=== PATIENT | female | born 1975 | race Two or more races ===

== ENCOUNTER 2018-12-27 09:43 | Inpatient (IN) | payer MEDICAID ==
[2018-12-12 09:55] LABS: HEMATOCRIT 31.2 % (37.0-47.0); HEMOGLOBIN 10.1 G/DL (12.0-16.0); MEAN CORPUSCULAR VOLUME 104 FL (80-99); PLATELET COUNT 237 K/UL (150-450); RED BLOOD COUNT 3.01 M/UL (4.20-5.40); RED CELL DISTRIBUTION WIDTH 17.8 % (11.6-14.8); WHITE BLOOD COUNT 4.2 K/UL (4.8-10.8)
[2018-12-12 10:00] LABS: APPEARANCE,URINE CLEAR; BILIRUBIN, URINE NEGATIVE (NEGATIVE); COLOR,URINE PALE YELLOW; GLUCOSE, URINE (UA) NEGATIVE (NEGATIVE); KETONES,URINE NEGATIVE (NEGATIVE); LEUKOCYTE ESTERASE ,URINE NEGATIVE (NEGATIVE); NITRITE,URINE NEGATIVE (NEGATIVE); PH,URINE 7 (4.5-8.0); PROTEIN,URINE NEGATIVE (NEGATIVE); UROBILINOGEN,URINE NORMAL MG/DL (0.0-1.0)
[2018-12-12 10:05] LABS: ANION GAP 10 mmol/L (5-15); BLOOD UREA NITROGEN 9 mg/dL (7-18); CALCIUM 9.3 MG/DL (8.5-10.1); CARBON DIOXIDE 28 MMOL/L (21-32); CHLORIDE 104 MMOL/L (98-107); CREATININE 0.6 MG/DL (0.55-1.30); POTASSIUM 3.5 MMOL/L (3.5-5.1); SODIUM 142 MMOL/L (136-145)
--- NOTE | 2018-12-13 16:02 | Cardiology Report ---
APPROVED REPORT EKG Measurement Heart [id number] Normal sinus rhythm Normal ECG
--- NOTE | 2018-12-23 17:15 | Pre-op HX & Phy Repo 2 SIG ---
DATE OF ADMISSION: 12/27/2018 SCHEDULED FOR SURGERY: December 27, 2018. 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 The patient had presented with a left breast mass in the lower inner quadrant adjacent to the areola measuring 3 x 2 cm. The mass is estrogen and progesterone and HER2 receptor negative. The patient received neoadjuvant chemotherapy with the left breast mass becoming no longer palpable and the previously palpable left axillary lymph nodes becoming much reduced. The patient is now scheduled to undergo left breast partial mastectomy with preoperative needle localization and left axillary lymph node dissection. PAST MEDICAL HISTORY: MEDICATIONS: None. ALLERGIES: None. OPERATIONS: None. REVIEW OF SYSTEMS: 3, para 3, having regular menstrual periods. The patient has a sister diagnosed with breast cancer at age 47. Per oncology, the patient had genetic testing which report was negative. PHYSICAL EXAMINATION: GENERAL: The patient is 5 foot, 136 pounds. VITAL SIGNS: Within normal limits. HEENT: Within normal limits. LUNGS: Clear. HEART: Regular rhythm. BREASTS: Moderate in size. There is some thickening at 8 to 9 o'clock in the left breast adjacent to the areola, but no palpable mass. Right breast unremarkable. No axillary or supraclavicular lymphadenopathy. ABDOMEN: Soft. PELVIC: Per primary care. RECTAL: Per primary care. EXTREMITIES: Without edema. NEUROLOGIC: Physiologic. IMPRESSION: Invasive ductal carcinoma, poorly differentiated, triple-negative, metastatic to axillary lymph nodes, status post neoadjuvant chemotherapy. PLAN: Left breast partial mastectomy with preoperative needle localization and left axillary lymph node dissection. I have had a full discussion with the patient regarding the nature of her condition, the nature of the surgery, indications, alternatives, options and risks including bleeding, infection, need for additional surgery or treatments including radiation therapy or additional chemotherapy based on final pathology, scarring, distortion of the breast and nipple, need for a drain, etc. All questions have been answered and the patient understands and agrees to proceed. Omid Figueroa M.D. DR: Marianela JOB#: [id number] CC: RERE
[~2018-12-27] VITALS: Ht 154.9 cm; Wt 54.5 kg
[2018-12-27] VITALS (15 sets, daily range): BP systolic 101–130; BP diastolic 60–83
[2018-12-27] MEDS ORDERED: NKM (10:12)
[2018-12-27 10:41] LABS: HEMATOCRIT 33.3 % (37.0-47.0); HEMOGLOBIN 10.9 G/DL (12.0-16.0); MEAN CORPUSCULAR VOLUME 100 FL (80-99); PLATELET COUNT 235 K/UL (150-450); RED BLOOD COUNT 3.35 M/UL (4.20-5.40); RED CELL DISTRIBUTION WIDTH 15.6 % (11.6-14.8)
--- NOTE | 2018-12-27 10:42 | Pre-Procedure Note/Attestation ---
Pre-Procedure Note/Attestation Complete Prior to Procedure Planned Procedure: left Procedure Narrative: left breast partial mastectomy with pre-op needle localization and left axillary lymph node dissection Indications for Procedure Pre-Operative Diagnosis: invasive ductal carcinoma left breast metastatic to axillary lymph nodes Attestation I attest that I discussed the nature of the procedure; its benefits; risks and complications; and alternatives (and the risks and benefits of such alternatives ), prior to the procedure, with the patient (or the patient's legal sales representative [employer]). I attest that, if there was a reasonable possibility of needing a blood transfusion, the patient (or the patient's legal sales representative [employer]) was given the [facility] standardized written summary, pursuant to the Tereso Lori Blood Safety Act ([place] Health and Safety Code # 1645, as amended). I attest that I re-evaluated the patient just prior to the surgery and that there has been no change in the patient's H&P, except as documented below:none Omid Figueroa MD December 27, 2018 10:42
[2018-12-27 11:14] LABS: HEMATOCRIT 31.6 % (37.0-47.0); HEMOGLOBIN 10.3 G/DL (12.0-16.0); MEAN CORPUSCULAR VOLUME 99 FL (80-99); PLATELET COUNT 242 K/UL (150-450); RED BLOOD COUNT 3.18 M/UL (4.20-5.40); RED CELL DISTRIBUTION WIDTH 16.3 % (11.6-14.8); WHITE BLOOD COUNT 23.5 K/UL (4.8-10.8)
[2018-12-27] MEDS ORDERED: Bacitracin 50000 Units Vial ONE (12:00)
[2018-12-27] MEDS ORDERED: Lidocaine 1% 10mg/ml/Epi 0.005mg/ml 30ml vial INJ ONE (12:00)
[2018-12-27] MEDS ORDERED: Bupivacaine 0.5% Inj 30 ml vial INJ ONE (12:00)
[2018-12-27] MEDS ORDERED: LR 1000ml ONE (12:28)
[2018-12-27] MEDS ORDERED: Sterile Water Irrig 1000ml IRRIG ONE (12:28)
[2018-12-27] MEDS ORDERED: NS Irrig 1000ml ONE (12:28)
[2018-12-27] MEDS ORDERED: fentaNYL 100 mcg/2 mL IV ONE (12:30)
[2018-12-27] MEDS ORDERED: Propofol 200mg/20ml IV ONE (12:30)
[2018-12-27] MEDS ORDERED: Lidocaine 1% MPF 10mg/ml 5ml ONE (12:30)
[2018-12-27] MEDS ORDERED: Midazolam 2mg/2ml Inj ONE (12:30)
[2018-12-27] MEDS ORDERED: LR 1000ml 1,000 ML IVLG SCH (12:55)
--- NOTE | 2018-12-27 12:55 | Anethesia Preoperative Eval ---
Anesthesia Pre-op PMH/ROS General Date of Evaluation: December 27, 2018 Anesthesiologist: Cale ASA Score: ASA 3 Mallampati Score Class I : Soft palate, uvula, fauces, pillars visible Class II: Soft palate, uvula, fauces visible Class III: Soft palate, base of uvula visible Class IV: Only hard plate visible Mallampati Classification: Class I Surgeon: Carolina Diagnosis: Left breast cancer Surgical Procedure: Left breast partial mastectomy with axillary lymph node biopsy Anesthesia History: none Family History: no anesthesia problems Allergies: Coded Allergies: No Known Allergies (Unverified , 12/27/18) Medications: see eMAR Patient NPO?: Yes NPO Date: December 26, 2018 NPO Time: 22:00 Past Medical History Cardiovascular: Denies: HTN, CAD, OR, valve dz, arrhythmia, other Pulmonary: Denies: asthma, COPD, MIRNA, other Gastrointestinal/Genitourinary: Denies: GERD, CRI, ESRD, other Neurologic/Psychiatric: Denies: dementia, CVA, depression/anxiety, TIA, other Endocrine: Denies: DM, hypothyroidism, steroids, other HEENT: Denies: cataract (L), cataract (R), glaucoma, [place] (L), [place] (R), other Hematology/Immune: Reports: anemia; Denies: DVT, bleeding disorder, other Musculoskeletal/Integumentary: Reports: other - left breast cancer; Denies: OA, RA, DJD, DDD, edema PSxH Narrative: left elbow sx Anesthesia Pre-op Phys. Exam Physician Exam Last Vital Signs Date Time Temp Pulse Resp B/P (MAP) Pulse Ox O2 Delivery O2 Flow Rate FiO2 12/27/18 10:30 Room Air 12/27/18 10:18 98.6 96 18 130/77 98 Constitutional: NAD Cardiovascular: RRR Respiratory: CTA Airway Exam Mallampati Score: Class I MO: full ROM: full Teeth: intact Anesthesia Pre-op A/P Labs Hematology Test 12/27/18 10:25 12/27/18 11:00 White Blood Count 25.0 K/UL (4.8-10.8) *H 23.5 K/UL (4.8-10.8) *H Red Blood Count 3.35 M/UL (4.20-5.40) L 3.18 M/UL (4.20-5.40) L Hemoglobin 10.9 G/DL (12.0-16.0) L 10.3 G/DL (12.0-16.0) L Hematocrit 33.3 % (37.0-47.0) L 31.6 % (37.0-47.0) L Mean Corpuscular Volume 100 FL (80-99) H 99 FL (80-99) Mean Corpuscular Hemoglobin 32.4 PG (27.0-31.0) H 32.3 PG (27.0-31.0) H Mean Corpuscular Hemoglobin Concent 32.6 G/DL (32.0-36.0) 32.5 G/DL (32.0-36.0) Red Cell Distribution Width 15.6 % (11.6-14.8) H 16.3 % (11.6-14.8) H Platelet Count 235 K/UL (150-450) 242 K/UL (150-450) Mean Platelet Volume 5.9 FL (6.5-10.1) L 5.3 FL (6.5-10.1) L Neutrophils (%) (Auto) % (45.0-75.0) % (45.0-75.0) Lymphocytes (%) (Auto) % (20.0-45.0) % (20.0-45.0) Monocytes (%) (Auto) % (1.0-10.0) % (1.0-10.0) Eosinophils (%) (Auto) % (0.0-3.0) % (0.0-3.0) Basophils (%) (Auto) % (0.0-2.0) % (0.0-2.0) Differential Total Cells Counted 100 100 Neutrophils % (Manual) 86 % (45-75) H 81 % (45-75) H Lymphocytes % (Manual) 6 % (20-45) L 10 % (20-45) L Monocytes % (Manual) 1 % (1-10) 2 % (1-10) Eosinophils % (Manual) 7 % (0-3) H 7 % (0-3) H Basophils % (Manual) 0 % (0-2) 0 % (0-2) Band Neutrophils 0 % (0-8) 0 % (0-8) Platelet Estimate Adequate Adequate Platelet Morphology Normal Normal Hypochromasia 1+ 1+ Anisocytosis 1+ 1+ Macrocytosis 1+ 1+ Studies Pre-op Studies: EKG - sr Risk Assessment & Plan Assessment: ASA III Plan: GA Status Change Before Surgery: No Pre-Antibiotics Drug: Ancef 1g Given Within 1 Hr of Incision: Yes Yokasta Heredia MD December 27, 2018 12:54
[2018-12-27] MEDS ORDERED: Midazolam 2mg/2ml Inj IVP PRN (13:00)
[2018-12-27] MEDS ORDERED: DiphenhydrAMINE 50mg/ml Inj IVP PRN (13:00)
[2018-12-27] MEDS ORDERED: Hydromorphone 0.5mg/0.5ml inj IVP PRN (13:00)
[2018-12-27] MEDS ORDERED: Metoclopramide 10mg/2ml Inj IVP PRN (13:00)
[2018-12-27] MEDS ORDERED: LORazepam Inj 2mg/ml 1ml IV PRN (13:00)
[2018-12-27] MEDS ORDERED: fentaNYL 100 mcg/2 mL IV PRN (13:00)
[2018-12-27] MEDS ORDERED: Ketorolac 30mg Inj IV PRN (13:00)
[2018-12-27] MEDS ORDERED: NS Irrig 1000ml IRRIG ONE (13:10)
[2018-12-27] MEDS ORDERED: HYDROmorphone 1mg/ml Carpuject SUBQ PRN (14:15)
[2018-12-27] MEDS ORDERED: HYDROcodone/Acetamin 5/325 tab ORAL PRN (14:15)
--- NOTE | 2018-12-27 14:17 | Immediate Post-Op Evaluation ---
Immediate Post-Op Evalulation Immediate Post-Op Evalulation Procedure: Left breast partial mastectomy with axillary lymph node biopsy Date of Evaluation: December 27, 2018 Time of Evaluation: 14:19 IV Fluids: 1.2L Blood Products: 0 Estimated Blood Loss: min Urinary Output: 0 Blood Pressure Systolic: 121 Blood Pressure Diastolic: 75 Pulse Rate: 77 Respiratory Rate: 16 O2 Sat by Pulse Oximetry: 100 Temperature (Fahrenheit): 97.1 Pain Score (1-10): 0 Nausea: No Vomiting: No Complications 0 Patient Status: awake, reacts, patent, none Hydration Status: adequate Drug: Ancef 1g Given Within 1 Hr of Incision: Yes Yokasta Heredia MD December 27, 2018 14:17
--- NOTE | 2018-12-27 14:18 | Brief Operative Note ---
Immediate Post Operative Note Operative Note Pre-op Diagnosis: invasive ductal carcinoma left breast metastatic to axillary lymph nodes Procedure: left breast partial mastectomy with pre-op needle localization and left axillary lymph node dissection Post-op Diagnosis: same Post-op Diagnosis: same as pre-op Findings: consistent w/pre-op dx studies Surgeon: earnest Anesthesiologist: dalia Anesthesia: general Specimen: yes - left breast tissue; axillary lymph nodes Complications: none Condition: stable Fluids: see anesthesia record Estimated Blood Loss: minimal Drains: VERONIQUE Implant(s) used?: No Omid Figueroa MD December 27, 2018 14:18
--- NOTE | 2018-12-27 15:45 | NUR ---
NURSE NOTES: REC'D FROM PACU SP LEFT PARTIAL MASTECTOMY WITH LYMPH NODE DISSECTION. DROWSY BUT AROUSABLE. IV INFUSING. LEFT BREAT DRESSING DRY AND INTACT WITH VERONIQUE IN PLACE WITH MINI MAL DRAINAGE. WITH SURGICAL BRA ON. V/S TAKEN. NO C/O PAIN. IN NO DISTRESS.
[2018-12-27] MEDS: D5 1/2NS w/KCl 20mEq 1,000 ML IV SCH (16:51)
--- NOTE | 2018-12-27 17:26 | NUR ---
NURSE NOTES: OOB WITH ASSIST. AMBULATED OUT IN THE [facility]CRACKEN TOLERATED. NO DIZZINESS.
--- NOTE | 2018-12-27 18:25 | NUR ---
NURSE NOTES: PT SHOWED AND INSTRUCTED HOW TO EMPTY VERONIQUE AND MEASURE OUTPUT .
--- NOTE | 2018-12-27 19:00 | NUR ---
NURSE NOTES: quiet in bed. no apparent distress.
--- NOTE | 2018-12-27 19:05 | NUR ---
HAND-OFF: Report given to brad zuniga rn.
--- NOTE | 2018-12-27 19:10 | NUR ---
NURSE NOTES: Received a report from RAYA Romero. AAOX4. Family members at the bedside. Able to make needs known. IV site is patent and intact. VERONIQUE drain on the L breast, dressing is intact and no bleeding. Bed in lowest position. Call light within reach. Will continue to monitor.
[2018-12-27] MEDS: ceFAZolin sod 1 GM in D5W 55 ML IV SCH (20:24)
--- NOTE | 2018-12-27 22:00 | Operative Note - Dictated ---
DATE OF OPERATION: 12/27/2018 SURGEON: Omid Figueroa M.D. SENIOR MAINTENANCE MECHANIC SURGEON: None. ANESTHESIOLOGIST: Dr. Madsen. TYPE OF ANESTHESIA: General. PREOPERATIVE DIAGNOSIS: Invasive ductal carcinoma, left breast, metastatic to left axillary lymph nodes. POSTOPERATIVE DIAGNOSIS: Invasive ductal carcinoma, left breast, metastatic to left axillary lymph nodes. OPERATION PERFORMED: Left breast partial mastectomy with preoperative needle localization and left axillary lymph node dissection. INDICATIONS: The patient presented in May 2018 with a palpable left breast mass and enlarged axillary lymph glands and core biopsy revealed invasive ductal carcinoma, metastatic to the lymph glands. She was estrogen, progesterone, and HER2 receptor negative. She underwent neoadjuvant chemotherapy and the mass resolved, no longer being palpable or visible on ultrasound, only the biopsy clip was present. DESCRIPTION OF PROCEDURE: The patient was taken to the operating room and under general anesthesia with sequential compression device stockings in place and having received intravenous antibiotics, the patient was prepped and draped in the usual fashion incorporating the left upper extremity into the sterile field. The lesion was retroareolar slightly medial and superior. A superiorly based circumareolar incision was made, extended transversely medially. Flaps were dissected circumferentially and the localization wire was brought into the field. The appropriate sector of breast tissue was resected achieving hemostasis with cautery. Specimen radiograph confirmed the presence of the lesion. The specimen was oriented with suture markers for the pathologist who stated that the inferior margin was slightly close of 5 mm. Additionally, inferior tissue was excised. The field was irrigated with water and antibiotic solution and hemostasis secured with cautery. The incision was closed with interrupted 3-0 Vicryl deep dermal subcutaneous sutures followed by continuous 5-0 Monocryl subcuticular suture. Left axillary incision was made achieving hemostasis with cautery and incising the clavipectoral fascia. An axillary lymph node dissection was performed starting at the axillary vein using the Thunderbeat electrosurgical device and 1 tie of 2-0 silk. Multiple lymph nodes were present within the tissue. The field was irrigated and hemostasis was seen to be secured. Through a separate stab incision inferiorly and laterally, a 19-mm round Brody drain was placed into the axilla and sutured to the skin with a 2-0 nylon skin suture. After ascertaining the hemostasis was secured, the clavipectoral fascia was closed with interrupted 3-0 Vicryl. The subcutaneous tissue is closed with interrupted 3-0 Vicryl and skin closed with continuous 4-0 Monocryl subcuticular suture. Mastisol and half-inch Steri-Strips were applied to both incisions followed by dry sterile dressings. Final sponge and needle counts were correct. The patient tolerated the procedure well and left the operating room in good condition. Omid Figueroa M.D. DR: FREEDOM JOB#: [id number] CC:
[2018-12-28] MEDS: ceFAZolin sod 1 GM in D5W 55 ML IV SCH (03:11)
[2018-12-28 04:00] VITALS: BP 95/57
[2018-12-28 05:31] LABS: BASOPHILS % (AUTO) 0.4 % (0.0-2.0); EOSINOPHILS % (AUTO) 8.9 % (0.0-3.0); HEMATOCRIT 30.4 % (37.0-47.0); HEMOGLOBIN 9.8 G/DL (12.0-16.0); LYMPHOCYTES % (AUTO) 9.8 % (20.0-45.0); MEAN CORPUSCULAR VOLUME 99 FL (80-99); NEUTROPHILS % (AUTO) 77.8 % (45.0-75.0); PLATELET COUNT 207 K/UL (150-450); RED BLOOD COUNT 3.06 M/UL (4.20-5.40); RED CELL DISTRIBUTION WIDTH 16.3 % (11.6-14.8)
[2018-12-28 05:45] LABS: ANION GAP 8 mmol/L (5-15); BLOOD UREA NITROGEN 7 mg/dL (7-18); CALCIUM 8.8 MG/DL (8.5-10.1); CARBON DIOXIDE 28 MMOL/L (21-32); CHLORIDE 107 MMOL/L (98-107); CREATININE 0.7 MG/DL (0.55-1.30); POTASSIUM 3.4 MMOL/L (3.5-5.1); SODIUM 143 MMOL/L (136-145)
[2018-12-28] MEDS: D5 1/2NS w/KCl 20mEq 1,000 ML IV SCH (06:20)
--- NOTE | 2018-12-28 07:40 | NUR ---
HAND-OFF: Report given to RAYA Crabtree.
[2018-12-28 08:00] VITALS: BP 99/72
--- NOTE | 2018-12-28 08:06 | NUR ---
NURSE NOTES: Call light placed in reach stated she did not know how to use call light for assistance. Instructed on use, Persian speaker. Current plan of care will be followed. Denies any discomfort. VERONIQUE drain is empty
--- NOTE | 2018-12-28 10:08 | NUR ---
NURSE NOTES: Dr Figueroa phoned gave instructions for development writer to provide pt teaching in regards to Fadi Bolton. Pt educated on emptying device, measuring fluids, and ensurring that the device is squeezed before capping. Verbalized understanding. Family member at bedside, verbalized she is familiar with the drain and s able to assist
--- NOTE | 2018-12-28 10:58 | 48 Hour Post Anesthesia Eval ---
Post Anesthesia Evaluation Procedure: Left breast partial mastectomy with axillary lymph node biopsy Date of Evaluation: December 28, 2018 Airway: patent Nausea: No Vomiting: No Pain Intensity: 0 Hydration Status: adequate Cardiopulmonary Status: at baseline Mental Status/LOC: patient returned to baseline Post-Anesthesia Complications: 0 Follow-up care needed: N/A - further care as per primary team Yokasta Heredia MD December 28, 2018 10:58
--- NOTE | 2018-12-28 11:52 | NUR ---
NURSE NOTES: Dr Figueroa her seen pt. Gave discharge instructions for pt not to get axillary area wet. Pt informed not to shower until visit, but is able to wash self from waist down. Keep bra on morning, and night. Not to elevate arm. Pt provided with instructions to exercise arm . Pt teaching provided to empty Fadi Prat morning noon and night and record output. Verbalized understanding Pt provided with instructions on emptying, drainage system . Follow up appt to be made on Wednesday at 9am . In order to secure drain to clothing safety pin or clothes pin can be placed in blue clip for added security. Pt was also informed by Dr. Figueroa that results from lymphoid tissue will take a week. Family member is at bedside. Pt denies pain, verbalized very little discomfort. gave instructions on the use of over the counter use of Extra Strength Tylenol, and Ibuprofen. Pt informed that 2 tablets of Ibuprofen could be taken , per Dr. Figueroa. Has family support. Does not have any questions at this time. Appointment card given to Pt by Dr Figueroa
--- NOTE | 2018-12-28 11:54 | General Progress Note ---
Progress Note Progress Note AVSS Comfortable without any analgesics required. Left breast and axilla incisions clean with intact steristrips. VERONIQUE with scant serosang drainage WBC much better 12404 (was 23,000 pre-op) Imp. doing well Plan: discharge with VERONIQUE drain f/u 01/03 office Rx - none - to take tylenol and/or ibuprofen prn instructions/limitations/supplies discussed/provided Omid Figueroa MD December 28, 2018 11:54
--- NOTE | 2018-12-28 12:26 | NUR ---
ENDOSCOPIC TECHNICIANHEEL SANDER RUBBER 43 Y/O FEMALE [place]O HOME [place] [facility] [place] CC;BREAST CANCER SI:BREAST CANCER VS: BP 95/57, P 102, T 99.2, RR 19, SpO2 96 WBC 25.0, RBC 3.35, H&H 10.9/33.3, K 3.4, IS;LEFT PARTIAL MASTECTOMY CAFAZOLIN SODIUM 55mL IV REGLAN 10mg IVP NS x1L IV LACTATED RINGERS x1L IVLG ADMITTED TO MED/SURG DCP: RETURN HOME
--- NOTE | 2018-12-28 15:13 | NUR ---
NURSE NOTES: pt discharged home family is at bedside. Provided with pt teaching in regards to Fadi Bolton care , and how to empty drain. Verbalized understanding. Pt escorted with use of wheelchair. Discharge packet provided, in Italian. IV removed, No further concerns made . Stable condition
--- NOTE | 2018-12-29 09:19 | Discharge Summary ---
Discharge Summary Discharge Summary _ DATE OF ADMISSION: 12/27/2018 DATE OF DISCHARGE: 12/28/2018 DISCHARGED BY: Dr. 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 The patient had presented with a left breast mass in the lower inner quadrant adjacent to the areola measuring 3 x 2 cm. The mass is estrogen and progesterone and HER2 receptor negative. The patient received neoadjuvant chemotherapy with the left breast mass becoming no longer palpable and the previously palpable left axillary lymph nodes becoming much reduced. BRIEF HOSPITAL COURSE: The patient was admitted on 12/27/2018. She underwent left breast partial mastectomy with preoperative needle localization and left axillary lymph node dissection. Patient tolerated procedure well and left the operating room in good condition. Postoperatively, she was given pain management. She was placed on SCDs for DVT prophylaxis. She was instructed to use incentive spirometry q one hour while awake. Diet was advanced. The following day, patient was comfortable without any analgesics required. Left breast and axilla incisions were clean and intact Steri-Strips. VERONIQUE with scant serosanguineous drainage. WBC went down to 14. Patient was given instructions/limitations and supplies were discussed/provided. PREOPERATIVE DIAGNOSIS: Invasive ductal carcinoma, left breast, metastatic to left axillary lymph nodes. POSTOPERATIVE DIAGNOSIS: Invasive ductal carcinoma, left breast, metastatic to left axillary lymph nodes. OPERATION PERFORMED: Left breast partial mastectomy with preoperative needle localization and left axillary lymph node dissection. DISPOSITION: Patient was discharged home. DISCHARGE MEDICATIONS: Refer to Discharge Medication List. DISCHARGE INSTRUCTIONS: Follow-up on 01/03/19. I have been assigned to complete a discharge summary on this account, I was not involved with the patient's management. Yoselin Martino NP December 29, 2018 09:19
== END 2018-12-28 14:32 | disposition home or self-care (01) | DRG 363 ==
LOC: SUR 09:43 → 3E 16:00
PROC: 07B60ZX Excision of Left Axillary Lymphatic, Open Approach, Diagnostic (ICD-10-PCS; 2018-12-27)
PROC: 0HBU0ZZ Excision of Left Breast, Open Approach (ICD-10-PCS; principal; 2018-12-27 12:30)
DX: C50.312 Malignant neoplasm of lower-inner quadrant of left female breast (principal); C77.3 Secondary and unspecified malignant neoplasm of axilla and upper limb lymph nodes; Z17.1 Estrogen receptor negative status [ER-]; Z80.3 Family history of malignant neoplasm of breast
CPT/HCPCS: 36415; 80048; 81001; 85007; 85025; 85610; 85730; 87081; 93005; 94003; 94150; 94760; J2250; J2405; J2765